=== PATIENT | female | born 1965 | race Caucasian/White ===

== ENCOUNTER → 2022-01-06 11:37 | Outpatient (CLI) | payer OTHER, SELFPAY ==
[2022-01-06 12:59] LABS: Appearance Urine UA SL CLOUDY; Bilirubin Urine UA NEGATIVE (NEGATIVE); Color Urine UA YELLOW; Glucose Urine UA NEGATIVE (Negative); Ketones Urine UA NEGATIVE (NEGATIVE); Leukocyte Esterase Urine UA 3+ (NEGATIVE); Nitrite Urine UA NEGATIVE (Negative); Occult Blood Urine UA 2+ (Negative); Protein Urine UA NEGATIVE (Negative); Specific Gravity Urine UA <=1.005 (1.000-1.035); Urobilinogen Urine UA 0.2 E.U./dL (0.2)
[2022-01-06 13:00] LABS: pH Urine UA 6.5 (4.5-8.0)
[2022-01-06 13:06] LABS: Bacteria Urine Moderate (10-30); Culture Indicated Urine Specimen Cultured; RBC Urine 1-5/HPF (0-5/HPF); Squamous Epithelial Cell Urine 0-1 /HPF (0-5/HPF); WBC Urine >100/HPF (0-5/HPF)
== END ==
PROVIDERS: Family Provider Family Medicine; PCP Pediatrics; Referring Provider Pediatrics; Visit Provider Pediatrics
DX: R30.0 Dysuria (principal); R30.9 Painful micturition, unspecified
CPT/HCPCS: 81001; 87077; 87086; 87186

== ENCOUNTER 2022-01-27 10:30 | Outpatient (RCR) | payer OTHER, SELFPAY ==
--- NOTE | 2022-01-20 17:58 | PT.OIE ---
Current Diagnoses Scar conditions and fibrosis of skin (01/20/22) Pain in left hip (01/20/22) Pain in left knee (01/20/22) Pain in left thigh (01/20/22) Pain, unspecified (01/20/22) Past Medical History (Last Reviewed 10/16/21 @ 16:22 by Caitlyn Ramos MD) Chronic back pain Herpes (~1988) Mumps (~1968) Recurrent sinusitis Scoliosis Shoulder pain Skin cancer (~2009) Past Surgical History (Last Reviewed 10/16/21 @ 16:22 by Caitlyn Ramos MD) Anesthesia Hamstring injury (~2009) History of appendectomy (~1971) History of section (~1990) Ovarian cyst (~1988) Visit Care Team Role Provider Type Carlyle Villalta MD Primary Care Provider Physician Specialty: Internal Medicine Pediatrics Address: [address] [place] [address] Phone: Fax: Email: [email or web address] Caitlyn Ramos MD Attending Provider Physician Family Provider Referring Provider Specialty: Family Practice Address: [address] [place] [address] Phone: Fax: Email: [email or web address] Physical Therapy Initial Evaluation PT-OP-A Visit Information Start: 01/20/22 15:19 Freq: Status: Active Protocol: Document 01/20/22 10:30 DCW (Rec: 01/20/22 15:21 DCW [id number]) Out-Patient Physical Therapy Visit Information Visit Information Visit Type Initial Evaluation Visit Start Time 10:30 Visit Stop Time 11:15 Total Visit Minutes 45 Visit Number 1 Number of VIDEO EDITING INTERN Visits 0 Evaluation Information Evaluation Date 01/20/22 PT-OP-B Current Condition Start: 01/20/22 15:19 Freq: Status: Active Protocol: Document 01/20/22 10:30 DCW (Rec: 01/20/22 17:42 DCW [id number]) Current Condition History of Current Condition Onset Date 2007 Current Complaints Tightness and soreness in left hamstring and calf. History of Current Condition Pt is a 56 year old female presenting with a lengthy history of left leg pain. Pt notes it began in 2007 when she was unexpectedly running a marathon. Pt notes she felt a pop in her hamstring, and had pain afterward that never really went away. Notes that then about seven years later, she finally got an MRI, and was found to have a partial tear of her proximal hamstring . Pt underwent PRP injections, was seeing a little progress, however then had a slip and fall, resulting in a complete tear of her hamstring. Reports surgical repair, but ever since, pt has just a general constant soreness and stiffness in her hamstring and calf. Notes she stretches constantly, but feels like she is unable to stretch far enough to actually get the area that hurts. Also notes that because of the tightness and soreness, she occasionally has difficulty walking, especially advancing her left leg during swing phase, and will occasionally catching her left foot while hiking. Treatment Goals Patient/Caregiver Goals I want to be able to walk correctly. I want to not be in pain, and to not trip. PT-OP-C Subjective Start: 01/20/22 15:19 Freq: Status: Active Protocol: Document 01/20/22 10:30 DCW (Rec: 01/20/22 17:42 DCW [id number]) OP-PT Subjective Patient Comments Patient Comments I guess it's a good thing, since I'm in here to show you what's going on, but it is really hurting today. Patient Questionnaires Lower Extremity Functional Scale LEFS Score 71/80 = 88.75% LEFS Impairment 1 to 19% Impaired (Score 63-79 ) OP-PT Pain Assessment Pain Assessment Grid Paper Pain Assessment Grid Completed Yes Location Left Posterior Leg Intensity 4 Scale Used Numeric (0 - 10) Description Aching,Tightness Frequency Frequent PT-OP-F Manual Assessment Start: 01/20/22 15:19 Freq: Status: Active Protocol: Document 01/20/22 10:30 DCW (Rec: 01/20/22 17:42 DCW [id number]) Manual Assessments Soft Tissue Assessment Soft Tissue Mobility Assessment Moderate tone and tenderness to palpation 3/4: wincing and withdraw in left distal lateral hamstring, medial and lateral gastroc, piriformis, and ITB. Joint Mobility Assessment Joint Mobility Assessment Pt hip joint mobility appears to be WNL, SLR to >90? with no resistance from joint of soft tissue, note ROM limitations PT-OP-G Mobility & Gait Start: 01/20/22 15:19 Freq: Status: Active Protocol: Document 01/20/22 10:30 DCW (Rec: 01/20/22 17:42 DCW [id number]) OP Gait Assessment Gait Gait Assistance Required: Independent Assistive Devices Assistive Device None Gait Deviations General Gait Pattern Within Normal Limits Comments Gait Comments Gait assessment in clinic today entirely WNL PT-OP-M Strength Start: 01/20/22 15:19 Freq: Status: Active Protocol: Document 01/20/22 10:30 DCW (Rec: 01/20/22 15:23 DCW [id number]) Hip Strength Hip Manual Muscle Testing Right Flexion (L2) 5 Normal Abduction 5 Normal Adduction 5 Normal External Rotation 5 Normal Internal Rotation 5 Normal Left Flexion (L2) 5 Normal Abduction 5 Normal Adduction 5 Normal External Rotation 5 Normal Internal Rotation 5 Normal Knee Strength Knee Manual Muscle Testing Right Flexion (S2) 5 Normal Extension (L3) 5 Normal Left Flexion (S2) 5 Normal Extension (L3) 5 Normal Ankle/Foot Strength Ankle and Foot Manual Muscle Testing Right Dorsiflexion (L4) 5 Normal Plantarflexion (S1) 5 Normal Inversion 5 Normal Eversion (S1) 5 Normal Left Dorsiflexion (L4) 5 Normal Plantarflexion (S1) 5 Normal Inversion 5 Normal Eversion (S1) 5 Normal PT-OP-Q Treatments Start: 01/20/22 15:19 Freq: Status: Active Protocol: Document 01/20/22 10:30 DCW (Rec: 01/20/22 15:21 DCW [id number]) Manual Therapy Treatment Soft Tissue Mobilization Piriformis Body Location Left piriformis Mobilization Type Sustained Pressure,Trigger Point Release Intensity/Depth Moderate Body Position Sidelying PT-OP-T Assessment and Plan Start: 01/20/22 15:19 Freq: Status: Active Protocol: Document 01/20/22 10:30 DCW (Rec: 01/20/22 17:58 DCW [id number]) Physical Therapy Assessment Rehab Potential Rehabilitation Potential Excellent Evaluation Complexity Number of Personal Factors/Comorbidities 1-2 Number of Body Systems Impaired 1-2 Clinical Presentation at Evaluation Stable Impairments Impairments Soft Tissue Mobility,Tone Goals Two Impairment Pt presents with increased tone in left hamstring, calf, and piriformis Longterm Goal (LTG) Pt to have reduced tone in hamstring and calf in order to improve foot clearance during swing phase LTG Duration 03/03/22 One Impairment Pt reports frequent catching her left foot on the ground when hiking Longterm Goal (LTG) Pt to complete hiking more than three miles without catching her foot LTG Duration 03/03/22 Assessment Summary Assessment Pt presents with pain and tone of distal hamstring and calf ~7 years s/p left proximal hamstring tear. Pt has difficulty with stretching to decrease tone due to hyperflexibility, which allows her to stretch as far as she can until resistance from the joint or a soft end-feel due to other soft tissue limits her from going any further. Reviewed using massage gun, rolling pin, and tennis ball to decrease tone. Pt noted great benefit from piriformis STM. Pt should benefit from skilled therapy focusing on STM and other manual techniques to help decrease tone, as well as potential modalities. Physical Therapy Plan Frequency and Duration Frequency of Treatment 2x/Week Duration of Treatment 6 weeks Plan of Care Start Date 01/20/22 Plan of Care End Date 03/03/22 Therapeutic Interventions Therapeutic Interventions Home Exercise Program,Joint Mobilizations,Manual Therapy, Patient/Caregiver Education, Self-Care/Home Management,Soft Tissue Mobilization, Therapeutic Activities, Therapeutic Exercises Modalities Cold Pack/Ice Massage,Electric Stimulation,Hot Packs, Ultrasound Next Visit Focus/Plan Next Note Type Treatment Note Next Visit Plan STM, stretching/flexibility
--- NOTE | 2022-01-20 17:58 | PT.OPPOC ---
Physical, Occupational & Speech Therapy At [facility] Current Diagnoses Scar conditions and fibrosis of skin (01/20/22) Pain in left hip (01/20/22) Pain in left knee (01/20/22) Pain in left thigh (01/20/22) Pain, unspecified (01/20/22) Visit Care Team Role Provider Type Carlyle Villalta MD Primary Care Provider Physician Specialty: Internal Medicine Pediatrics Address: [address] [place] [address], [address] Phone: Fax: Email: [email or web address] Caitlyn Ramos MD Attending Provider Physician Family Provider Referring Provider Specialty: Family Practice Address: [address] [place] [address], [address] Phone: Fax: Email: [email or web address] Plan Of Care PT-OP-T Assessment and Plan Start: 01/20/22 15:19 Freq: Status: Active Protocol: Document 01/20/22 10:30 DCW (Rec: 01/20/22 17:58 DCW [id number]) Physical Therapy Assessment Rehab Potential Rehabilitation Potential Excellent Evaluation Complexity Number of Personal Factors/Comorbidities 1-2 Number of Body Systems Impaired 1-2 Clinical Presentation at Evaluation Stable Impairments Impairments Soft Tissue Mobility,Tone Goals Two Impairment Pt presents with increased tone in left hamstring, calf, and piriformis Nursing Home Goal (LTG) Pt to have reduced tone in hamstring and calf in order to improve foot clearance during swing phase LTG Duration 03/03/22 One Impairment Pt reports frequent catching her left foot on the ground when hiking Nursing Home Goal (LTG) Pt to complete hiking more than three miles without catching her foot LTG Duration 03/03/22 Assessment Summary Assessment Pt presents with pain and tone of distal hamstring and calf ~7 years s/p left proximal hamstring tear. Pt has difficulty with stretching to decrease tone due to hyperflexibility, which allows her to stretch as far as she can until resistance from the joint or a soft end-feel due to other soft tissue limits her from going any further. Reviewed using massage gun, rolling pin, and tennis ball to decrease tone. Pt noted great benefit from piriformis STM. Pt should benefit from skilled therapy focusing on STM and other manual techniques to help decrease tone, as well as potential modalities. Physical Therapy Plan Frequency and Duration Frequency of Treatment 2x/Week Duration of Treatment 6 weeks Plan of Care Start Date 01/20/22 Plan of Care End Date 03/03/22 Therapeutic Interventions Therapeutic Interventions Home Exercise Program,Joint Mobilizations,Manual Therapy, Patient/Caregiver Education, Self-Care/Home Management,Soft Tissue Mobilization, Therapeutic Activities, Therapeutic Exercises Modalities Cold Pack/Ice Massage,Electric Stimulation,Hot Packs, Ultrasound Next Visit Focus/Plan Next Note Type Treatment Note Next Visit Plan STM, stretching/flexibility Plan of Care Dates Plan of Care Start Date 01/20/22 Plan of Care End Date 03/03/22 Electronically Signed by: Mesfin Pearl, PT 01/20/22 [id number] If you are in agreement with this Plan of Care, please return a signed and dated copy. I have reviewed this Plan of Care and certify that the skilled therapy services above are required to meet the patient?s needs. Physician Signature Date Printed Name and Credentials Clinical Instructor Signature Printed Name and Credentials
--- NOTE | 2022-01-27 11:15 | PT.OTN ---
Current Diagnoses Scar conditions and fibrosis of skin (01/27/22) Pain in left hip (01/27/22) Pain in left knee (01/27/22) Pain in left thigh (01/27/22) Physical Therapy Treatment Note PT-OP-A Visit Information Start: 01/20/22 15:19 Freq: Status: Active Protocol: Document 01/27/22 10:33 DCW (Rec: 01/27/22 11:15 DCW [id number]) Out-Patient Physical Therapy Visit Information Visit Information Visit Type Treatment Note Visit Start Time 10:33 Visit Stop Time 11:15 Total Visit Minutes 42 Visit Number 2 Number of IN FLIGHT REFUELING OPERATOR Visits 0 Evaluation Information Evaluation Date 01/20/22 PT-OP-B Current Condition Start: 01/20/22 15:19 Freq: Status: Active Protocol: Document 01/20/22 10:30 DCW (Rec: 01/20/22 17:42 DCW [id number]) Current Condition History of Current Condition Onset Date 2007 Current Complaints Tightness and soreness in left hamstring and calf. History of Current Condition Pt is a 56 year old female presenting with a lengthy history of left leg pain. Pt notes it began in 2007 when she was unexpectedly running a marathon. Pt notes she felt a pop in her hamstring, and had pain afterward that never really went away. Notes that then about seven years later, she finally got an MRI, and was found to have a partial tear of her proximal hamstring . Pt underwent PRP injections, was seeing a little progress, however then had a slip and fall, resulting in a complete tear of her hamstring. Reports surgical repair, but ever since, pt has just a general constant soreness and stiffness in her hamstring and calf. Notes she stretches constantly, but feels like she is unable to stretch far enough to actually get the area that hurts. Also notes that because of the tightness and soreness, she occasionally has difficulty walking, especially advancing her left leg during swing phase, and will occasionally catching her left foot while hiking. Treatment Goals Patient/Caregiver Goals I want to be able to walk correctly. I want to not be in pain, and to not trip. PT-OP-C Subjective Start: 01/20/22 15:19 Freq: Status: Active Protocol: Document 01/27/22 10:33 DCW (Rec: 01/27/22 11:15 DCW [id number]) OP-PT Subjective Patient Comments Patient Comments I haven't stretched this morning, and I've have had a lot of stuff going on, so I haven't been hiking, but things feel pretty good. I have been holding stretches longer, and that seems to help . PT-OP-F Manual Assessment Start: 01/20/22 15:19 Freq: Status: Active Protocol: Document 01/20/22 10:30 DCW (Rec: 01/20/22 17:42 DCW [id number]) Manual Assessments Soft Tissue Assessment Soft Tissue Mobility Assessment Moderate tone and tenderness to palpation 3/4: wincing and withdraw in left distal lateral hamstring, medial and lateral gastroc, piriformis, and ITB. Joint Mobility Assessment Joint Mobility Assessment Pt hip joint mobility appears to be WNL, SLR to >90? with no resistance from joint of soft tissue, note ROM limitations PT-OP-G Mobility & Gait Start: 01/20/22 15:19 Freq: Status: Active Protocol: Document 01/20/22 10:30 DCW (Rec: 01/20/22 17:42 DCW [id number]) OP Gait Assessment Gait Gait Assistance Required: Independent Assistive Devices Assistive Device None Gait Deviations General Gait Pattern Within Normal Limits Comments Gait Comments Gait assessment in clinic today entirely WNL PT-OP-M Strength Start: 01/20/22 15:19 Freq: Status: Active Protocol: Document 01/20/22 10:30 DCW (Rec: 01/20/22 15:23 DCW [id number]) Hip Strength Hip Manual Muscle Testing Right Flexion (L2) 5 Normal Abduction 5 Normal Adduction 5 Normal External Rotation 5 Normal Internal Rotation 5 Normal Left Flexion (L2) 5 Normal Abduction 5 Normal Adduction 5 Normal External Rotation 5 Normal Internal Rotation 5 Normal Knee Strength Knee Manual Muscle Testing Right Flexion (S2) 5 Normal Extension (L3) 5 Normal Left Flexion (S2) 5 Normal Extension (L3) 5 Normal Ankle/Foot Strength Ankle and Foot Manual Muscle Testing Right Dorsiflexion (L4) 5 Normal Plantarflexion (S1) 5 Normal Inversion 5 Normal Eversion (S1) 5 Normal Left Dorsiflexion (L4) 5 Normal Plantarflexion (S1) 5 Normal Inversion 5 Normal Eversion (S1) 5 Normal PT-OP-Q Treatments Start: 01/20/22 15:19 Freq: Status: Active Protocol: Document 01/27/22 10:33 DCW (Rec: 01/27/22 11:15 DC [id number]) Therapeutic Exercises Supine Exercises Hamstring Supine Exercise Name HS stretch Side left Piriformis Supine Exercise Name Piriformis stretch Side left Manual Therapy Treatment Soft Tissue Mobilization Psoas Body Location L Psoas Mobilization Type Strumming,Sustained Pressure Intensity/Depth Moderate Body Position Hooklying Gastroc Body Location L Gastroc Mobilization Type Rolling,Sustained Pressure, Trigger Point Release Intensity/Depth Moderate Body Position Prone QL Body Location L QL Mobilization Type Sustained Pressure,Trigger Point Release Intensity/Depth Moderate Body Position Sidelying Hamstring Body Location L hamstring Mobilization Type Rolling,Sustained Pressure, Trigger Point Release Intensity/Depth Moderate Body Position Prone Piriformis Body Location Left piriformis Mobilization Type Sustained Pressure,Trigger Point Release Intensity/Depth Moderate Body Position Sidelying PT-OP-T Assessment and Plan Start: 01/20/22 15:19 Freq: Status: Active Protocol: Document 01/27/22 10:33 DCW (Rec: 01/27/22 11:15 DC [id number]) Physical Therapy Assessment Impairments Impairments Soft Tissue Mobility,Tone Goals Two Impairment Pt presents with increased tone in left hamstring, calf, and piriformis Aba Therapist Goal (LTG) Pt to have reduced tone in hamstring and calf in order to improve foot clearance during swing phase LTG Duration 03/03/22 One Impairment Pt reports frequent catching her left foot on the ground when hiking Aba Therapist Goal (LTG) Pt to complete hiking more than three miles without catching her foot LTG Duration 03/03/22 Assessment Summary Assessment Pt tolerated treatment well today, main focus STM due to pt's hypermobility making effective stretching difficult . Physical Therapy Plan Frequency and Duration Frequency of Treatment 2x/Week Duration of Treatment 6 weeks Plan of Care Start Date 01/20/22 Plan of Care End Date 03/03/22 Therapeutic Interventions Therapeutic Interventions Home Exercise Program,Joint Mobilizations,Manual Therapy, Patient/Caregiver Education, Self-Care/Home Management,Soft Tissue Mobilization, Therapeutic Activities, Therapeutic Exercises Modalities Cold Pack/Ice Massage,Electric Stimulation,Hot Packs, Ultrasound Next Visit Focus/Plan Next Note Type Treatment Note Next Visit Plan STM, stretching/flexibility
--- NOTE | 2022-07-24 14:10 | PT.OPDS ---
Current Diagnoses Scar conditions and fibrosis of skin (01/27/22) Pain in left hip (01/27/22) Pain in left knee (01/27/22) Pain in left thigh (01/27/22) Visit Care Team Role Provider Type Carlyle Villalta MD Primary Care Provider Physician Specialty: Internal Medicine Pediatrics Address: [address] [place] [address], [address] Phone: Fax: Email: [email or web address] Caitlyn Ramos MD Attending Provider Physician Family Provider Referring Provider Specialty: Family Practice Address: [address] [place] [address], [address] Phone: Fax: Email: [email or web address] Visit Number Visit Number 2 Discharge Summary PT-OP-B Current Condition Start: 01/20/22 15:19 Freq: Status: Active Protocol: Document 01/20/22 10:30 DCW (Rec: 01/20/22 17:42 DCW [id number]) Current Condition History of Current Condition Onset Date 2007 Current Complaints Tightness and soreness in left hamstring and calf. History of Current Condition Pt is a 56 year old female presenting with a lengthy history of left leg pain. Pt notes it began in 2007 when she was unexpectedly running a marathon. Pt notes she felt a pop in her hamstring, and had pain afterward that never really went away. Notes that then about seven years later, she finally got an MRI, and was found to have a partial tear of her proximal hamstring . Pt underwent PRP injections, was seeing a little progress, however then had a slip and fall, resulting in a complete tear of her hamstring. Reports surgical repair, but ever since, pt has just a general constant soreness and stiffness in her hamstring and calf. Notes she stretches constantly, but feels like she is unable to stretch far enough to actually get the area that hurts. Also notes that because of the tightness and soreness, she occasionally has difficulty walking, especially advancing her left leg during swing phase, and will occasionally catching her left foot while hiking. Treatment Goals Patient/Caregiver Goals I want to be able to walk correctly. I want to not be in pain, and to not trip. PT-OP-C Subjective Start: 01/20/22 15:19 Freq: Status: Active Protocol: Document 01/27/22 10:33 DCW (Rec: 01/27/22 11:15 DCW [id number]) OP-PT Subjective Patient Comments Patient Comments I haven't stretched this morning, and I've have had a lot of stuff going on, so I haven't been hiking, but things feel pretty good. I have been holding stretches longer, and that seems to help . PT-OP-F Manual Assessment Start: 01/20/22 15:19 Freq: Status: Active Protocol: Document 01/20/22 10:30 DCW (Rec: 01/20/22 17:42 DCW [id number]) Manual Assessments Soft Tissue Assessment Soft Tissue Mobility Assessment Moderate tone and tenderness to palpation 3/4: wincing and withdraw in left distal lateral hamstring, medial and lateral gastroc, piriformis, and ITB. Joint Mobility Assessment Joint Mobility Assessment Pt hip joint mobility appears to be WNL, SLR to >90? with no resistance from joint of soft tissue, note ROM limitations PT-OP-G Mobility & Gait Start: 01/20/22 15:19 Freq: Status: Active Protocol: Document 01/20/22 10:30 DCW (Rec: 01/20/22 17:42 DCW [id number]) OP Gait Assessment Gait Gait Assistance Required: Independent Assistive Devices Assistive Device None Gait Deviations General Gait Pattern Within Normal Limits Comments Gait Comments Gait assessment in clinic today entirely WNL PT-OP-M Strength Start: 01/20/22 15:19 Freq: Status: Active Protocol: Document 01/20/22 10:30 DCW (Rec: 01/20/22 15:23 DCW [id number]) Hip Strength Hip Manual Muscle Testing Right Flexion (L2) 5 Normal Abduction 5 Normal Adduction 5 Normal External Rotation 5 Normal Internal Rotation 5 Normal Left Flexion (L2) 5 Normal Abduction 5 Normal Adduction 5 Normal External Rotation 5 Normal Internal Rotation 5 Normal Knee Strength Knee Manual Muscle Testing Right Flexion (S2) 5 Normal Extension (L3) 5 Normal Left Flexion (S2) 5 Normal Extension (L3) 5 Normal Ankle/Foot Strength Ankle and Foot Manual Muscle Testing Right Dorsiflexion (L4) 5 Normal Plantarflexion (S1) 5 Normal Inversion 5 Normal Eversion (S1) 5 Normal Left Dorsiflexion (L4) 5 Normal Plantarflexion (S1) 5 Normal Inversion 5 Normal Eversion (S1) 5 Normal PT-OP-T Assessment and Plan Start: 01/20/22 15:19 Freq: Status: Active Protocol: Document 07/24/22 14:09 DCW (Rec: 07/24/22 14:09 [facility] [id number]) Physical Therapy Assessment Assessment Summary Assessment Pt canceled final scheduled appointment, no reason given, has now not been seen in five months. Pt will be discharged from skilled therapy at this time. Physical Therapy Plan Discharge Physical Therapy Discharge Reasons No Longer Attending PT
== END 2022-07-25 11:23 | disposition home or self-care (01) ==
LOC: PHYS 10:30
PROVIDERS: Family Provider Family Medicine; PCP Pediatrics; Referring Provider Family Medicine; Visit Provider Family Medicine
DX: M79.652 Pain in left thigh (principal); L90.5 Scar conditions and fibrosis of skin; M25.552 Pain in left hip; M25.562 Pain in left knee
CPT/HCPCS: 97110; 97140; 97161

== ENCOUNTER → 2022-07-16 08:01 | Outpatient (CLI) | payer OTHER, SELFPAY ==
--- NOTE | 2022-07-16 | DI.MG.S_ITS ---
BILATERAL DIGITAL SCREENING MAMMOGRAM 3D/2D WITH CAD: 07/16/2022 CLINICAL: Routine screening. Comparison is made to exams dated: 01/02/2020 mammogram and 12/28/2018 mammogram - Outside facility. There are scattered areas of fibroglandular density in both breasts (category b / 25%-50% glandular tissue). Current study was also evaluated with a Computer Aided Detection (CAD) system. No significant masses, calcifications, or other findings are seen in either breast. There has been no significant interval change. IMPRESSION: NEGATIVE There is no mammographic evidence of malignancy. A 1 year screening mammogram is recommended. Based on the Tyrer Cuzick model (a risk assessment model) the patient's lifetime risk is 6.8% and her 10 year risk is 2.5%. According to the ACR, ACS, and NCCN guidelines, an annual breast MRI exam along with mammogram is recommended if the patient's lifetime risk is 20% or greater. This exam was interpreted at Station ID: [id number]. NOTE: For mammograms, a report in lay terms will be sent to the patient. Approximately 15% of breast malignancies will not be visualized mammographically. In the management of a palpable breast mass, a negative mammogram must not discourage biopsy of a clinically suspicious lesion. Electronically Signed By: Gordon delgado/graciela:07/16/2022 09:11:20 letter sent: Normal Exam ACR BI-RADS Category 1: Negative [id number]
== END ==
PROVIDERS: Family Provider Family Medicine; PCP Physician Assistant; Referring Provider Physician Assistant; Visit Provider Physician Assistant
DX: Z12.31 Encounter for screening mammogram for malignant neoplasm of breast (principal)
CPT/HCPCS: 77063; 77067

== ENCOUNTER → 2023-07-29 09:09 | Outpatient (CLI) | payer OTHER, SELFPAY ==
--- NOTE | 2023-07-29 09:10 | DI.MG.S_ITS ---
BILATERAL DIGITAL SCREENING MAMMOGRAM 3D/2D WITH CAD: 07/29/2023 CLINICAL: Routine screening. Comparison is made to exams dated: 07/16/2022 mammogram - [facility], 01/02/2020 mammogram, and 12/28/2018 mammogram - Outside facility. Both breasts are heterogeneously dense, which may obscure small masses (category c / 51-75% glandular tissue). Current study was also evaluated with a Computer Aided Detection (CAD) system. There is a focal asymmetry in the right breast central to the nipple middle depth. No other significant masses, calcifications, or other findings are seen in either breast. IMPRESSION: INCOMPLETE: NEEDS ADDITIONAL IMAGING EVALUATION The focal asymmetry in the right breast is indeterminate. Additional views with possible ultrasound are recommended. Based on the Tyrer Cuzick model (a risk assessment model) the patient's lifetime risk is 10.0% and her 10 year risk is 3.9%. According to the ACR, ACS, and NCCN guidelines, an annual breast MRI exam along with mammogram is recommended if the patient's lifetime risk is 20% or greater. This exam was interpreted at Station ID: [id number]. NOTE: For mammograms, a report in lay terms will be sent to the patient. Approximately 15% of breast malignancies will not be visualized mammographically. In the management of a palpable breast mass, a negative mammogram must not discourage biopsy of a clinically suspicious lesion. Electronically Signed By: Betty neely/graciela:07/29/2023 14:00:53 letter sent: Additional Imaging Needed ACR BI-RADS Category 0: Incomplete 3340F
== END ==
LOC: MAMMO 09:10
PROVIDERS: Family Provider Family Medicine; PCP Physician Assistant; Referring Provider Physician Assistant; Visit Provider Physician Assistant
DX: Z12.31 Encounter for screening mammogram for malignant neoplasm of breast (principal); R92.333 Mammographic heterogeneous density, bilateral breasts
CPT/HCPCS: 77063; 77067

== ENCOUNTER → 2023-10-06 13:32 | Outpatient (CLI) | payer OTHER, SELFPAY ==
--- NOTE | 2023-10-06 13:35 | DI.MG.S_ITS ---
UNILATERAL RIGHT DIGITAL DIAGNOSTIC MAMMOGRAM 3D/2D WITH ADDITIONAL VIEWS: 10/06/2023 CLINICAL: Additional evaluation requested from prior study. Comparison is made to exams dated: 07/29/2023 mammogram, 07/16/2022 mammogram - [facility], 01/02/2020 mammogram, and 12/28/2018 mammogram - Outside facility. The right breast is heterogeneously dense, which may obscure small masses (category c / 51-75% glandular tissue). The possible focal asymmetry in the right breast central to the nipple middle depth is not reproduced and presumably represented superimposed breast tissue. No other significant masses or calcifications are seen in the breast. IMPRESSION: NEGATIVE There is no mammographic evidence of malignancy. Return to annual mammogram screening schedule is recommended. Based on the Tyrer Cuzick model (a risk assessment model) the patient's lifetime risk is 10.0% and her 10 year risk is 3.9%. According to the ACR, ACS, and NCCN guidelines, an annual breast MRI exam along with mammogram is recommended if the patient's lifetime risk is 20% or greater. This exam was interpreted at Station ID: [id number]. NOTE: For mammograms, a report in lay terms will be sent to the patient. Approximately 15% of breast malignancies will not be visualized mammographically. In the management of a palpable breast mass, a negative mammogram must not discourage biopsy of a clinically suspicious lesion. Electronically Signed By: Antonio alvarez/graciela:10/06/2023 14:52:22 letter sent: Normal Exam ACR BI-RADS Category 1: Negative 3341F
== END ==
PROVIDERS: Family Provider Family Medicine; PCP Physician Assistant; Referring Provider Physician Assistant; Visit Provider Physician Assistant
DX: R92.8 Other abnormal and inconclusive findings on diagnostic imaging of breast (principal); R92.331 Mammographic heterogeneous density, right breast
CPT/HCPCS: 77065; G0279

== ENCOUNTER 2025-01-06 08:59 | Emergency (ER) | payer OTHER, SELFPAY ==
[2025-01-06 09:04] VITALS: BP 139/80; PULSE 81; RESP 13; TEMP 37.3; O2SAT 100; BMI 21.8
--- NOTE | 2025-01-06 10:45 | DI.CT.S_ITS ---
PROCEDURE: CT SOFT TISSUE NECK W CON INDICATIONS: Right jaw swelling TECHNIQUE: After the administration of intravenous contrast, 3.0 mm axial sections acquired from the sella to the aortic arch. Additional oblique axial 3.0 mm sections acquired through the pharynx. 3 mm thick coronal and sagittal reformats were generated. For radiation dose reduction, the following was used: automated exposure control. COMPARISON: [facility], CT, CT HEAD WITHOUT CONTRAST, 08/31/2023, 21:30. [facility], CT, CT FACIAL BONES WITHOUT CONTRAST, 08/31/2023, 21:32. FINDINGS: Image quality: There is streak artifact seen through the level of the shoulders. Lymph nodes: Several prominent right-sided lymph nodes are seen, including a right level 2A lymph node on series 2 image 33, measuring 13 x 8 mm. Vessels: Visualized vasculature appears patent. Neck spaces: The oropharynx, nasopharynx, and pharynx demonstrate no mucosal lesions. The vocal cords, false vocal cords, pyriform sinuses, epiglottis, vallecula, and tongue base all appear normal. Extramucosal spaces appear unremarkable. Glands: The right parotid gland is abnormally swollen and hyperenhancing. There is surrounding inflammatory change seen, with fatty stranding. No soft tissue gas is seen. No soft tissue abscess is seen. The right parotid duct does not appear dilated. The left parotid gland is unremarkable. The submandibular glands appear normal. Thyroid gland demonstrates no significant abnormality. Miscellaneous: Visualized brain and orbits appear normal. Lung apices appear clear. Superficial soft tissues appear normal. Bones: No suspicious bony lesions. Visualized sinuses and mastoids appear unremarkable. Lower cervical spine degenerative change is seen. IMPRESSION: Inflamed right parotid gland, with associated overlying soft tissue inflammatory change. Borderline prominent adjacent lymph nodes are seen, which are regarded to be reactive. No soft tissue abscess is seen. The parotid duct does not appear dilated. Dictated by: Jr Echols M.D. on 01/06/2025 at 10:54 Approved by: Jr Echols M.D. on 01/06/2025 at 10:57
--- NOTE | 2025-01-06 10:47 | ED.SKABFB ---
HPI - Skin/Abscess/Foreign Bdy General Chief complaint: Skin/Abscess/Foreign Body Stated complaint: Neck is swollen . 3 weeks Time Seen by Provider: 01/06/25 09:07 Source: patient Mode of arrival: Ambulatory Limitations: no limitations History of Present Illness HPI narrative: 59 years old female came today complaining of right jaw swelling, pain, difficulty swallowing with subjective fever since 01/04/2025. She reported similar episode 3 weeks ago but it went away. She went to see her doctor and was asked to sip some lemon juice. She denied any headache, nausea vomiting, chest pain, shortness of breath, abdominal pain. Related Data Home Medications ?Medication ?Instructions ?Recorded ?Confirmed zelda extract 500 mg capsule mg PO 10/11/21 02/18/22 multivitamin 1 tab PO DAILY 10/11/21 02/18/22 Previous Rx's ?Medication ?Instructions ?Recorded ondansetron 4 mg disintegrating 4 mg PO Q8H PRN nausea and 10/11/21 tablet vomiting #12 tabs trazodone 100 mg tablet 100 mg PO BEDTIME PRN insomnia #90 10/11/21 tabs fluconazole 150 mg tablet 150 mg PO ONCE #1 tab 01/06/22 (Diflucan) methocarbamol 500 mg tablet 500 mg PO TID PRN muscle 02/18/22 spasticity #30 tabs amoxicillin 875 mg-potassium 1 tab PO BID #20 tabs 01/06/25 clavulanate 125 mg tablet fluconazole 150 mg tablet 150 mg PO .once #1 tab 01/06/25 Allergies Allergy/AdvReac Type Severity Reaction Status Date / Time No Known Drug Allergies Allergy Unverified 01/06/25 09:04 Review of Systems Review of Systems Narrative: Positive for right jaw swelling, pain. Difficulty swallowing, substitute fever. Negative for shortness of breath, chest pain, nausea vomiting, chills, abdominal pain, diarrhea, constipation, headache. Patient History Medical History Chronic back pain Herpes (~1988) Mumps (~1968) Recurrent sinusitis Scoliosis Shoulder pain Skin cancer (~2009) Surgical History Anesthesia Hamstring injury (~2009) History of appendectomy (~1971) History of section (~1990) Ovarian cyst (~1988) Social History Smoking Status: Current every day smoker Tobacco: How many years used: 41 quit status: considering quitting second hand exposure: No alcohol intake: current substance use type: marijuana Smoking Status: Current every day smoker Exam Narrative Exam Narrative: GENERAL: Cooperative. Well developed. No acute distress. HEAD: Atraumatic. Normocephalic. ENT: Nose without bleeding, purulent drainage. Throat without erythema, tonsillar hypertrophy or exudate. Airway patent. NECK: Trachea midline. Non tender. My erythematous Swelling and tenderness of the front of the right ear without fluctuation. CARDIOVASCULAR: Regular rate and rhythm without murmurs, gallops, or rubs. RESPIRATORY: Clear to auscultation. Breath sounds equal bilaterally. No wheezes, rales, or rhonchi. GASTROINTESTINAL: Abdomen soft, non-tender, nondistended. EXTREMITIES: No edema or joint tenderness. BACK: Nontender without deformity or crepitance. No flank tenderness. NEURO: AOx3. SKIN: No rash or erythema of visible areas Initial Vital Signs Initial Vital Signs: Vital Signs Temperature 99.1 F 01/06/25 09:04 Pulse Rate 81 01/06/25 09:04 Respiratory Rate 13 01/06/25 09:04 Blood Pressure 139/80 01/06/25 09:04 Pulse Oximetry 100 01/06/25 09:04 Oxygen Delivery Method Room Air 01/06/25 09:04 Course Orders Ordered: Discontinued Medications Ampicillin Sodium/Sulbactam (Sodium 3 gm/ Sodium Chloride) 100 mls @ 200 mls/hr IV NOW ONE Stop: 01/06/25 10:47 Last Infusion: 01/06/25 12:38 Dose: Infused Documented By: Admin: 01/06/25 11:44 Dose: 200 mls/hr Documented By: CTS Vital Signs Vital signs: Vital Signs - 8 hr 01/06/25 09:04 01/06/25 10:59 01/06/25 11:00 Temperature 99.1 F Pulse Rate 81 75 Respiratory Rate 13 Blood Pressure 139/80 115/65 Pulse Oximetry 100 96 Oxygen Delivery Method Room Air 01/06/25 11:00 Temperature Pulse Rate 76 Respiratory Rate Blood Pressure Pulse Oximetry 97 Oxygen Delivery Method MDM - Skin/Abscess/Foreign Bdy Lab Data 01/06/25 10:55 01/06/25 10:55 Labs: Lab Results 01/06/25 Range/Units 10:55 WBC 16.1 H (4.5-11.0) X10^3/uL RBC 4.11 (4.0-5.2) X10^6/uL Hgb 14.1 (12.0-16.0) g/dL Hct 41.0 (36-46) % MCV 99.7 (80-100) fL MCH 34.4 H (26-34) PG MCHC 34.5 (30-36) % RDW 12.8 (11.6-14.8) % Plt Count 346 (150-400) X10^3/uL Neut % (Auto) 73.5 (50-75) % Lymph % (Auto) 11.4 L (25-40) % Jessamine % (Auto) 13.5 (3-14) % Eos % (Auto) 0.7 L (2-4) % Baso % (Auto) 0.9 (0-2) % Neut # (Auto) 30817 H (2954-9191) /uL Lymph # (Auto) 1800 (5974-0149) /uL Jessamine # (Auto) 2200 H (0-900) /uL Eos # (Auto) 100 (0-450) /uL Baso # (Auto) 100 (0-100) /uL Sodium 136 L (137-145) mmol/L Potassium 4.5 (3.4-5.1) mmol/L Chloride 104 (98-107) mmol/L Carbon Dioxide 25 (22-32) mmol/L BUN 8 (7-17) mg/dL Creatinine 0.68 (0.52-1.04) mg/dL Estimated GFR > 60 (>60) mL/min BUN/Creatinine Ratio 11.8 (6-22) Glucose 108 H (70-99) mg/dL Lactate 1.0 (0.7-2.1) mmol/L Calcium 9.3 (8.4-10.2) mg/dL Total Bilirubin 0.6 (0.2-1.3) mg/dL AST 21 (14-36) IU/L ALT 14 (<35) IU/L Alkaline Phosphatase 70 (38-126) U/L Total Protein 7.2 (6.3-8.2) g/dL Albumin 3.9 (3.5-5.0) g/dL Globulin 3.3 (1.7-4.1) g/dL Albumin/Globulin Ratio 1.2 (1.0-2.8) Imaging Data CT neck soft tissue with contrast: Radiologist's Impression: PROCEDURE: CT SOFT TISSUE NECK W CON INDICATIONS: Right jaw swelling TECHNIQUE: After the administration of intravenous contrast, 3.0 mm axial sections acquired from the sella to the aortic arch. Additional oblique axial 3.0 mm sections acquired through the pharynx. 3 mm thick coronal and sagittal reformats were generated. For radiation dose reduction, the following was used: automated exposure control. COMPARISON: [facility], CT, CT HEAD WITHOUT CONTRAST, 08/31/2023, 21:30. [facility], CT, CT FACIAL BONES WITHOUT CONTRAST, 08/31/2023, 21:32. FINDINGS: Image quality: There is streak artifact seen through the level of the shoulders. Lymph nodes: Several prominent right-sided lymph nodes are seen, including a right level 2A lymph node on series 2 image 33, measuring 13 x 8 mm. Vessels: Visualized vasculature appears patent. Neck spaces: The oropharynx, nasopharynx, and pharynx demonstrate no mucosal lesions. The vocal cords, false vocal cords, pyriform sinuses, epiglottis, vallecula, and tongue base all appear normal. Extramucosal spaces appear unremarkable. Glands: The right parotid gland is abnormally swollen and hyperenhancing. There is surrounding inflammatory change seen, with fatty stranding. No soft tissue gas is seen. No soft tissue abscess is seen. The right parotid duct does not appear dilated. The left parotid gland is unremarkable. The submandibular glands appear normal. Thyroid gland demonstrates no significant abnormality. Miscellaneous: Visualized brain and orbits appear normal. Lung apices appear clear. Superficial soft tissues appear normal. Bones: No suspicious bony lesions. Visualized sinuses and mastoids appear unremarkable. Lower cervical spine degenerative change is seen. IMPRESSION: Inflamed right parotid gland, with associated overlying soft tissue inflammatory change. Borderline prominent adjacent lymph nodes are seen, which are regarded to be reactive. No soft tissue abscess is seen. The parotid duct does not appear dilated. Dictated by: Jr Echols M.D. on 01/06/2025 at 10:54 Approved by: Jr Echols M.D. on 01/06/2025 at 10:57 MDM Narrative Medical decision making narrative: 59 years old female came today complaining of right jaw swelling, pain, difficulty swallowing with subjective fever since 01/04/2025. Her CV exam, lung exam, abdominal exam were benign. The throat exam showed patent airway without acute finding. There was tenderness and mild erythematous swelling of the right parotid gland without fluctuation. CT scan neck soft tissue showed right parotid gland inflammation. Her CBC showed WBC of 16.1 and hemoglobin of 14.1. Her sodium 136 otherwise normal CMP. Her lactic was normal. She was given Unasyn in the ED after blood culture and was sent home with 10 day of Augmentin. I asked her to follow up with her PCP to set up primary care doctor follow up outpatient. The return to the ED precaution was given. Discharge Plan Departure Patient Disposition: Home Clinical Impression: Acute parotitis Instructions: DI for Parotitis-Adult Activity Restrictions/Additional Instructions: Please come back to the emergency room if any worsening symptoms including but not limited to chest pain, shortness of breath, fever, chills, nausea vomiting, worsening pain or difficulty swallowing. Prescriptions: New amoxicillin-pot clavulanate 875-125 mg tablet 1 tab PO BID Qty: 20 0RF fluconazole 150 mg tablet 150 mg PO .once Qty: 1 0RF No Action methocarbamol 500 mg tablet 500 mg PO TID PRN (Reason: muscle spasticity) Qty: 30 0RF fluconazole [Diflucan] 150 mg tablet 150 mg PO ONCE Qty: 1 0RF Rx Instructions: as a single dose multivitamin Tablet 1 tab PO DAILY zelda extract 500 mg capsule PO trazodone 100 mg tablet 100 mg PO BEDTIME PRN (Reason: insomnia) Qty: 90 1RF ondansetron 4 mg tablet,disintegrating 4 mg PO Q8H PRN (Reason: nausea and vomiting) Qty: 12 2RF Referrals: Barbara Gaming PA-C [Primary Care Provider, Medical] Stand Alone Forms: Patient Portal/API
[2025-01-06 10:59] VITALS: PULSE 75; O2SAT 96
[2025-01-06 11:00] VITALS: BP 115/65; PULSE 76; O2SAT 97
[2025-01-06 11:13] LABS: Add Manual Diff / Slide Review NO; Hematocrit 41.0 % (36-46); Hemoglobin 14.1 g/dL (12.0-16.0); Lymphocytes Absolute Auto 1800 /uL (1100-4500); Mean Corpuscular HGB Conc 34.5 % (30-36); Mean Corpuscular Hemoglobin 34.4 PG (26-34); Mean Corpuscular Volume 99.7 fL (80-100); Platelet Count 346 X10^3/uL (150-400)
[2025-01-06 11:24] LABS: Alanine Aminotransferase 14 IU/L (<35); Albumin 3.9 g/dL (3.5-5.0); Albumin Globulin Ratio 1.2 (1.0-2.8); Alkaline Phosphatase 70 U/L (38-126); Blood Urea Nitrogen 8 mg/dL (7-17); Calcium 9.3 mg/dL (8.4-10.2); Carbon Dioxide 25 mmol/L (22-32); Chloride 104 mmol/L (98-107); Estimated Glomerular Filt Rate > 60 mL/min (>60); Globulin 3.3 g/dL (1.7-4.1); Glucose 108 mg/dL (70-99); HEMOLYSIS < 15 (0-50); Potassium 4.5 mmol/L (3.4-5.1); Sodium 136 mmol/L (137-145); Total Protein 7.2 g/dL (6.3-8.2)
[2025-01-06 11:33] LABS: Lactate (Lactic Acid) 1.0 mmol/L (0.7-2.1)
[2025-01-06] MEDS: AMPICILLIN/SULBACTAM 3 GM 3 GM in SODIUM CHLORIDE 0.9% 100 ML IV (11:44)
[2025-01-06 12:36] VITALS: BP 125/79; PULSE 76; TEMP 36.9; O2SAT 96
== END 2025-01-06 12:40 | disposition home or self-care (01) ==
PROVIDERS: Emergency Provider Emergency Medicine; Family Provider Family Medicine; PCP Physician Assistant
DX: K11.21 Acute sialoadenitis (principal)
CPT/HCPCS: 36415; 70491; 80053; 83605; 85025; 87040; 96365; 99284; J0295; Q9967

== ENCOUNTER → 2025-05-09 07:24 | Outpatient (CLI) | payer OTHER, SELFPAY ==
--- NOTE | 2025-05-09 07:27 | DI.CT.S_ITS ---
PROCEDURE: CT LUNG LOW DOSE SCREENING INDICATIONS: Nicotine dependence, unspecified, uncomplicated TECHNIQUE: Noncontrast 2.0-2.5 mm thick sections acquired from the pulmonary apices to the posterior costophrenic angles. 7 mm thick axial MIP, and 5 mm coronal and sagittal reformats were then acquired. For radiation dose reduction, the following was used: automated exposure control, adjustment of mA and/or kV according to patient size. COMPARISON: None. FINDINGS: Image quality: Diagnostic. Lower Neck: No enlarged lymph nodes. Thyroid: No thyroid nodules which require sonographic follow up, per consensus guidelines. Axillae: No enlarged lymph nodes. Chest Wall: Unremarkable. Bones: Unremarkable. Lungs and Pleura: No pneumothorax or pleural effusions. No consolidation or suspicious nodules. Heart: Heart size is normal. No pericardial effusion. Thoracic Vessels: The aorta and pulmonary arteries demonstrate normal size. Mediastinum and Suri: No enlarged lymph nodes. Esophagus: No wall thickening. Mild hiatal hernia. Upper Abdomen: Visualized upper abdomen solid organs and bowel loops appear normal. IMPRESSION: No suspicious pulmonary nodules. LUNG-RADS 1; continued annual screening, if eligible. Clinically Significant Non-pulmonary Findings: None. Dictated by: Alessia Colon M.D. on 05/09/2025 at 11:26 Approved by: Alessia Colon M.D. on 05/09/2025 at 11:27
== END ==
LOC: CT 07:26
PROVIDERS: Family Provider Family Medicine; PCP Physician Assistant; Referring Provider Physician Assistant; Visit Provider Physician Assistant
DX: Z12.2 Encounter for screening for malignant neoplasm of respiratory organs (principal); F17.210 Nicotine dependence, cigarettes, uncomplicated; K44.9 Diaphragmatic hernia without obstruction or gangrene
CPT/HCPCS: 71271